=== PATIENT | male | born 1980 | race Caucasian/White ===

== ENCOUNTER 2017-01-30 09:52 | Emergency (ER) | payer OTHER ==
[~2017-01-30] VITALS: Ht 175.3 cm; Wt 86.3 kg
[~2017-01-30 09:52] MED LIST: ATI1 PO; BUS5 PO; FOL1 PO; NIC21 TD; PRILOSEC20 MG PO; THI100 PO
[2017-01-30 11:23] LABS: BASOPHIL % 0.4 % (0-2); PLATELET COUNT 242 x10^3mcL (130-400); RED CELL DISTRIBUTION WIDTH 12.5 % (11.5-14.5)
[2017-01-30 11:38] LABS: CALCIUM 8.3 mg/dL (8.5-10.1); CARBON DIOXIDE 25.8 mmol/L (21-32); CHLORIDE SERUM 102 mmol/L (98-107); CREATININE SERUM 0.8 mg/dL (0.7-1.3); GFR1 > 60 mL/min; GLUCOSE SERUM 90 mg/dL (74-106); POTASSIUM SERUM 3.8 mmol/L (3.5-5.1); SODIUM SERUM 143 mmol/L (136-145)
[2017-01-30 11:43] LABS: AMPHETAMINE QUAL UR NONE DETECTED (NEG <=1000)
[2017-01-30 11:45] LABS: ALBUMIN 4.1 g/dL (3.4-5.0); ALKALINE PHOSPHATASE 66 U/L (46-116); ALT/SGPT 75 U/L (16-63); AST/SGOT 83 U/L (15-37); BILIRUBIN TOTAL 0.65 mg/dL (0.20-1.00); TOTAL PROTEIN, SERUM 7.6 g/dL (6.4-8.2)
[2017-01-30 13:00] VITALS: BP 120/69
== END 2017-01-30 13:01 | disposition home or self-care (01) ==
LOC: ED 09:52
PROVIDERS: Emergency Medicine
DX: F10.239 Alcohol dependence with withdrawal, unspecified (principal)
CPT/HCPCS: 80307; G0480; J2060; J7030

== ENCOUNTER 2017-02-25 08:45 | Emergency (ER) | payer OTHER ==
[~2017-02-25] VITALS: Ht 175.3 cm; Wt 89.9 kg
[2017-02-25 10:52] LABS: CALCIUM 8.7 mg/dL (8.5-10.1); CARBON DIOXIDE 28.2 mmol/L (21-32); CHLORIDE SERUM 104 mmol/L (98-107); CREATININE SERUM 0.8 mg/dL (0.7-1.3); GFR1 > 60 mL/min; GLUCOSE SERUM 74 mg/dL (74-106); POTASSIUM SERUM 4.6 mmol/L (3.5-5.1); SODIUM SERUM 140 mmol/L (136-145)
[2017-02-25 11:06] LABS: BASOPHIL % 0.2 % (0-2); PLATELET COUNT 265 x10^3mcL (130-400); RED CELL DISTRIBUTION WIDTH 13.3 % (11.5-14.5)
[2017-02-25 12:33] VITALS: BP 136/87
== END 2017-02-25 12:39 | disposition home or self-care (01) ==
LOC: ED 08:45
PROVIDERS: Emergency Medicine
DX: F10.239 Alcohol dependence with withdrawal, unspecified (principal); F10.229 Alcohol dependence with intoxication, unspecified; R00.2 Palpitations; R11.0 Nausea; K21.9 Gastro-esophageal reflux disease without esophagitis
CPT/HCPCS: J2060; J2405; J7030

== ENCOUNTER 2017-04-30 08:07 | Emergency (ER) | payer OTHER ==
[~2017-04-30] VITALS: Ht 177.8 cm; Wt 86.2 kg
[2017-04-30 09:30] VITALS: BP 125/81
== END 2017-04-30 09:30 | disposition home or self-care (01) ==
LOC: ED 08:07
DX: F10.239 Alcohol dependence with withdrawal, unspecified (principal); F17.200 Nicotine dependence, unspecified, uncomplicated; F12.90 Cannabis use, unspecified, uncomplicated; Z71.6 Tobacco abuse counseling
CPT/HCPCS: 99406

== ENCOUNTER 2017-05-30 10:33 | Emergency (ER) | payer OTHER ==
[~2017-05-30] VITALS: Ht 177.8 cm; Wt 83.5 kg
[2017-05-30 13:09] LABS: PLATELET COUNT 114 x10^3mcL (130-400); RED CELL DISTRIBUTION WIDTH 14.3 % (11.5-14.5)
[2017-05-30 13:54] LABS: CARBON DIOXIDE 29.1 mmol/L (21-32); CHLORIDE SERUM 93 mmol/L (98-107); CREATININE SERUM 0.8 mg/dL (0.7-1.3); GFR1 > 60 mL/min; GLUCOSE SERUM 85 mg/dL (74-106); POTASSIUM SERUM 3.8 mmol/L (3.5-5.1); SODIUM SERUM 136 mmol/L (136-145)
[2017-05-30 15:38] VITALS: BP 121/82
== END 2017-05-30 15:38 | disposition home or self-care (01) ==
LOC: ED 10:33
PROVIDERS: Emergency Medicine
DX: F10.239 Alcohol dependence with withdrawal, unspecified (principal); F10.229 Alcohol dependence with intoxication, unspecified; K21.9 Gastro-esophageal reflux disease without esophagitis
CPT/HCPCS: G0480; J2060; J3490

== ENCOUNTER 2017-07-08 13:52 | Emergency (ER) | payer OTHER ==
[2017-07-08 14:16] VITALS: BP 127/70
== END 2017-07-08 14:16 | disposition left against medical advice (07) ==
LOC: ED 13:52
DX: F10.129 Alcohol abuse with intoxication, unspecified (principal); K21.9 Gastro-esophageal reflux disease without esophagitis
CPT/HCPCS: 36415; G0480

== ENCOUNTER 2017-10-28 13:35 | Emergency (ER) | payer OTHER ==
[~2017-10-28] VITALS: Ht 177.8 cm; Wt 93.0 kg
[2017-10-28 13:42] VITALS: Ht 177.8 cm; Wt 93.0 kg
[2017-10-28 14:28] LABS: BASOPHIL % 0.6 % (0-2); PLATELET COUNT 279 x10^3mcL (130-400); RED CELL DISTRIBUTION WIDTH 12.9 % (11.5-14.5)
[2017-10-28 14:29] VITALS: BP 118/70
[2017-10-28 14:37] LABS: CALCIUM 7.9 mg/dL (8.5-10.1); CARBON DIOXIDE 21.2 mmol/L (21-32); CHLORIDE SERUM 101 mmol/L (98-107); GFR1 > 60 mL/min; GLUCOSE SERUM 246 mg/dL (74-106); POTASSIUM SERUM 3.4 mmol/L (3.5-5.1); SODIUM SERUM 138 mmol/L (136-145)
[2017-10-28 14:41] LABS: ALBUMIN 3.7 g/dL (3.4-5.0); ALKALINE PHOSPHATASE 68 U/L (46-116); ALT/SGPT 51 U/L (16-63); AST/SGOT 38 U/L (15-37); BILIRUBIN TOTAL 0.4 mg/dL (0.20-1.00)
[2017-10-28] MEDS ORDERED: PRILOSEC OTC20 M1 PO (14:50)
[2017-10-28 16:14] LABS: PHOSPHOROUS 1.5 mg/dL (2.5-4.9)
[2017-10-28 16:17] LABS: CHOLESTEROL/HDL RATIO 3.3
[2017-10-28 16:28] LABS: FREE T4 0.98 ng/dL (0.76-1.46); FREE THYROXINE INDEX 2.2 ug/dL (1.4-4.5); T4(THYROXINE) 6.2 ug/dL (4.7-13.3)
[2017-10-28 16:36] LABS: T3 TOTAL 0.6 ng/mL
== END 2017-10-28 15:43 | disposition left against medical advice (07) ==
LOC: ED 13:35 → DU 14:40 → ED 15:43
PROVIDERS: Emergency Medicine; Family Medicine
DX: F10.231 Alcohol dependence with withdrawal delirium (principal); K21.9 Gastro-esophageal reflux disease without esophagitis
CPT/HCPCS: 83880; 84439; G0480; J2060; J7030

== ENCOUNTER 2017-10-30 19:52 | Emergency (ER) | payer OTHER ==
[~2017-10-30] VITALS: Ht 177.8 cm; Wt 94.8 kg
[~2017-10-30 19:52] MED LIST changes: +PRILOSEC OTC20 M1 PO
[2017-10-30 22:07] VITALS: BP 140/86; Ht 177.8 cm; Wt 94.8 kg
== END 2017-10-30 23:45 | disposition left against medical advice (07) ==
LOC: ED 19:52
DX: Z53.21 Procedure and treatment not carried out due to patient leaving prior to being seen by health care provider (principal)

== ENCOUNTER 2018-03-16 12:01 | Inpatient (IN) | payer OTHER ==
[~2018-03-16] VITALS: Ht 177.8 cm; Wt 99.5 kg
[2018-03-16 12:55] LABS: BASOPHIL % 0.5 % (0-2); PLATELET COUNT 265 x10^3mcL (130-400); RED CELL DISTRIBUTION WIDTH 12.7 % (11.5-14.5)
[2018-03-16 13:08] LABS: CALCIUM 8.6 mg/dL (8.5-10.1); CARBON DIOXIDE 17.1 mmol/L (21-32); CHLORIDE SERUM 98 mmol/L (98-107); CREATININE SERUM 0.8 mg/dL (0.7-1.3); GFR1 > 60 mL/min; GLUCOSE SERUM 64 mg/dL (74-106); POTASSIUM SERUM 4.6 mmol/L (3.5-5.1); SODIUM SERUM 136 mmol/L (136-145)
[2018-03-16 13:13] LABS: ALBUMIN 4.4 g/dL (3.4-5.0); ALKALINE PHOSPHATASE 77 U/L (46-116); ALT/SGPT 95 U/L (16-63); AST/SGOT 95 U/L (15-37); BILIRUBIN TOTAL 0.69 mg/dL (0.20-1.00); LIPASE 94 IU/L (73-393); TOTAL PROTEIN, SERUM 7.8 g/dL (6.4-8.2)
[2018-03-16 14:38] VITALS: BP 114/65
[2018-03-16 14:48] VITALS: Ht 177.8 cm; Wt 99.5 kg
[2018-03-16 14:49] VITALS: BP 131/66
[2018-03-16 15:35] LABS: T3 TOTAL 0.64 ng/mL
[2018-03-16 15:40] LABS: PHOSPHOROUS 3.2 mg/dL (2.5-4.9)
[2018-03-16 15:56] VITALS: BP 11/60; BP 117/76
[2018-03-16 16:02] LABS: FREE T4 1.09 ng/dL (0.76-1.46); FREE THYROXINE INDEX 2.5 ug/dL (1.4-4.5); T4(THYROXINE) 7.2 ug/dL (4.7-13.3)
[2018-03-16 16:08] LABS: UA SPECIFIC GRAVITY >=1.030 (1.005-1.035); microscopic required? YES; urine erythrocyte TRACE (NEGATIVE)
[2018-03-16 16:24] LABS: AMPHETAMINE QUAL UR NONE DETECTED (NEG <=1000)
[2018-03-16 20:20] VITALS: BP 135/77
[2018-03-17 05:54] VITALS: BP 130/74
[2018-03-17 06:43] LABS: BASOPHIL % 0.3 % (0-2); PLATELET COUNT 194 x10^3mcL (130-400); RED CELL DISTRIBUTION WIDTH 13.1 % (11.5-14.5)
[2018-03-17 06:51] LABS: CALCIUM 7.9 mg/dL (8.5-10.1); CARBON DIOXIDE 24.3 mmol/L (21-32); CHLORIDE SERUM 103 mmol/L (98-107); CREATININE SERUM 0.9 mg/dL (0.7-1.3); GFR1 > 60 mL/min; GLUCOSE SERUM 64 mg/dL (74-106); POTASSIUM SERUM 4.1 mmol/L (3.5-5.1); SODIUM SERUM 139 mmol/L (136-145)
[2018-03-17 08:50] VITALS: BP 125/80
[2018-03-17 12:49] VITALS: BP 144/72
[2018-03-17] MEDS ORDERED: THI100 PO (13:55)
[2018-03-17] MEDS ORDERED: FOL1 PO (13:55)
[2018-03-17] MEDS ORDERED: THERAGRAN-M1 TA4 PO (13:56)
[2018-03-17] MEDS ORDERED: LIB25 PO (13:57)
[2018-03-17] MEDS ORDERED: CELEXA20 MG PO (14:03)
[2018-03-17 14:18] VITALS: BP 144/72
== END 2018-03-17 15:21 | disposition home or self-care (01) | DRG 756 ==
LOC: ED 12:01 → DU 13:22 → EDBEDREQ 13:24 → DU 14:28
PROVIDERS: Emergency Medicine; Family Medicine
DX: F41.9 Anxiety disorder, unspecified (principal); F10.239 Alcohol dependence with withdrawal, unspecified; F17.210 Nicotine dependence, cigarettes, uncomplicated; Y90.9 Presence of alcohol in blood, level not specified; K21.9 Gastro-esophageal reflux disease without esophagitis; R20.2 Paresthesia of skin; R00.2 Palpitations; Z53.29 Procedure and treatment not carried out because of patient's decision for other reasons; Z79.899 Other long term (current) drug therapy
CPT/HCPCS: 83880; 84439; G0480; J2060; J2405; J2550; J3411; J3490; J7030; Q0092

== ENCOUNTER 2018-06-03 08:36 | Emergency (ER) | payer SELFPAY ==
[~2018-06-03] VITALS: Ht 175.3 cm; Wt 93.1 kg
[~2018-06-03 08:36] MED LIST changes: +CELEXA20 MG PO; +LIB25 PO; +THERAGRAN-M1 TA4 PO
[2018-06-03 08:40] VITALS: Ht 175.3 cm; Wt 93.1 kg
[2018-06-03 09:10] LABS: BASOPHIL % 1.6 % (0-2); PLATELET COUNT 342 x10^3mcL (130-400); RED CELL DISTRIBUTION WIDTH 14.5 % (11.5-14.5)
[2018-06-03 09:49] LABS: CALCIUM 8.4 mg/dL (8.5-10.1); CARBON DIOXIDE 23.6 mmol/L (21-32); CHLORIDE SERUM 98 mmol/L (98-107); CREATININE SERUM 0.9 mg/dL (0.7-1.3); GFR1 > 60 mL/min; GLUCOSE SERUM 81 mg/dL (74-106); POTASSIUM SERUM 3.6 mmol/L (3.5-5.1); SODIUM SERUM 141 mmol/L (136-145)
[2018-06-03 09:56] LABS: ALBUMIN 4.2 g/dL (3.4-5.0); ALKALINE PHOSPHATASE 69 U/L (46-116); ALT/SGPT 192 U/L (16-63); AST/SGOT 158 U/L (15-37); BILIRUBIN TOTAL 0.79 mg/dL (0.20-1.00); MAGNESIUM 1.8 mg/dL (1.8-2.4); TOTAL PROTEIN, SERUM 7.9 g/dL (6.4-8.2)
[2018-06-03 11:47] LABS: AMPHETAMINE QUAL UR NONE DETECTED (See below)
[2018-06-03 12:59] VITALS: BP 118/76
== END 2018-06-03 13:40 | disposition home or self-care (01) ==
LOC: ED 08:36
PROVIDERS: Emergency Medicine
DX: F10.129 Alcohol abuse with intoxication, unspecified (principal); K21.0 Gastro-esophageal reflux disease with esophagitis
CPT/HCPCS: G0480; J2060; J3411; J3475; J3490; J7030; Q0092

== ENCOUNTER 2018-06-04 15:34 | Emergency (ER) | payer SELFPAY ==
[~2018-06-04] VITALS: Ht 175.3 cm; Wt 93.0 kg
[2018-06-04 15:49] VITALS: Ht 175.3 cm; Wt 93.0 kg
[2018-06-04 16:59] LABS: CALCIUM 8.2 mg/dL (8.5-10.1); MAGNESIUM 1.9 mg/dL (1.8-2.4); T4(THYROXINE) 8.2 ug/dL (4.7-13.3)
[2018-06-04 19:20] VITALS: BP 138/98
[2018-06-04 20:37] LABS: PHOSPHOROUS 2.9 mg/dL (2.5-4.9)
[2018-06-04 20:42] LABS: CHOLESTEROL/HDL RATIO 2.7
== END 2018-06-04 19:20 | disposition left against medical advice (07) ==
LOC: ED 15:34 → DU 18:16 → ED 18:16
PROVIDERS: Emergency Medicine; Family Medicine
DX: F10.229 Alcohol dependence with intoxication, unspecified (principal); R55 Syncope and collapse; M62.82 Rhabdomyolysis; F17.210 Nicotine dependence, cigarettes, uncomplicated
CPT/HCPCS: 83880; 90715; G0480; J3411; J3475; J3490; J7030

== ENCOUNTER 2018-08-29 19:12 | Inpatient (IN) | payer MEDICAID ==
[~2018-08-29] VITALS: Ht 177.8 cm; Wt 94.3 kg
[2018-08-29 19:23] VITALS: Ht 177.8 cm; Wt 94.3 kg
[2018-08-29 20:53] LABS: BASOPHIL % 0.3 % (0-2); PLATELET COUNT 244 x10^3mcL (130-400); RED CELL DISTRIBUTION WIDTH 13.7 % (11.5-14.5)
[2018-08-29 20:58] LABS: CALCIUM 8.4 mg/dL (8.5-10.1); CARBON DIOXIDE 23.3 mmol/L (21-32); CHLORIDE SERUM 95 mmol/L (98-107); GFR1 > 60 mL/min; GLUCOSE SERUM 133 mg/dL (74-106); POTASSIUM SERUM 3.9 mmol/L (3.5-5.1); SODIUM SERUM 136 mmol/L (136-145)
[2018-08-29 21:04] LABS: ALBUMIN 4.4 g/dL (3.4-5.0); ALKALINE PHOSPHATASE 81 U/L (46-116); ALT/SGPT 91 U/L (16-63); AST/SGOT 65 U/L (15-37); BILIRUBIN TOTAL 0.8 mg/dL (0.20-1.00); TOTAL PROTEIN, SERUM 8.1 g/dL (6.4-8.2)
[2018-08-30 00:48] LABS: T3 TOTAL 0.75 ng/mL
[2018-08-30 00:54] LABS: PHOSPHOROUS 2.3 mg/dL (2.5-4.9)
[2018-08-30 01:06] LABS: FREE T4 0.94 ng/dL (0.76-1.46); FREE THYROXINE INDEX 2.5 ug/dL (1.4-4.5); T4(THYROXINE) 7.5 ug/dL (4.7-13.3)
[2018-08-30 01:35] VITALS: BP 131/67
[2018-08-30 04:45] VITALS: BP 126/68
[2018-08-30 06:08] VITALS: BP 106/71
[2018-08-30 08:08] VITALS: BP 122/78
[2018-08-30 08:48] LABS: UA SPECIFIC GRAVITY >=1.030 (1.005-1.035); microscopic required? YES; urine erythrocyte NEGATIVE (NEGATIVE)
[2018-08-30 09:03] LABS: AMPHETAMINE QUAL UR NONE DETECTED (See below)
[2018-08-30 09:40] LABS: BASOPHIL % 1.8 % (0-2); PLATELET COUNT 194 x10^3mcL (130-400); RED CELL DISTRIBUTION WIDTH 12.8 % (11.5-14.5)
[2018-08-30 10:07] LABS: CALCIUM 7.5 mg/dL (8.5-10.1); CHLORIDE SERUM 101 mmol/L (98-107); CREATININE SERUM 0.8 mg/dL (0.7-1.3); GFR1 > 60 mL/min; GLUCOSE SERUM 88 mg/dL (74-106); MAGNESIUM 2.4 mg/dL (1.8-2.4); PHOSPHOROUS 1.1 mg/dL (2.5-4.9); POTASSIUM SERUM 3.8 mmol/L (3.5-5.1); SODIUM SERUM 137 mmol/L (136-145)
[2018-08-30 11:45] VITALS: BP 121/78
[2018-08-30] MEDS ORDERED: LIB25 PO ×3 (11:49→11:50)
[2018-08-30 13:00] VITALS: BP 121/78
== END 2018-08-30 12:42 | disposition home or self-care (01) | DRG 52 ==
LOC: ED 19:12 → DU 08-30 00:26
PROVIDERS: Emergency Medicine; Family Medicine
DX: G92 Toxic encephalopathy (principal); E83.39 Other disorders of phosphorus metabolism; E87.2 Acidosis; F10.129 Alcohol abuse with intoxication, unspecified; E83.51 Hypocalcemia; K21.9 Gastro-esophageal reflux disease without esophagitis; Y90.6 Blood alcohol level of 120-199 mg/100 ml; R74.0 Nonspecific elevation of levels of transaminase and lactic acid dehydrogenase [LDH]; E78.5 Hyperlipidemia, unspecified; Z68.29 Body mass index [BMI] 29.0-29.9, adult; F17.210 Nicotine dependence, cigarettes, uncomplicated
CPT/HCPCS: 83880; 84439; G0480; J2060; J2405; J3411; J3475; J3490; J7030; Q0092

== ENCOUNTER 2018-09-26 18:20 | Inpatient (IN) | payer MEDICAID ==
[~2018-09-26] VITALS: Ht 175.3 cm; Wt 94.0 kg
[2018-09-26 20:16] LABS: PLATELET COUNT 231 x10^3mcL (130-400); RED CELL DISTRIBUTION WIDTH 13.8 % (11.5-14.5)
[2018-09-26 20:17] LABS: CALCIUM 8.8 mg/dL (8.5-10.1); CARBON DIOXIDE 24.6 mmol/L (21-32); CHLORIDE SERUM 98 mmol/L (98-107); CREATININE SERUM 0.9 mg/dL (0.7-1.3); GFR1 > 60 mL/min; GLUCOSE SERUM 87 mg/dL (74-106); SODIUM SERUM 141 mmol/L (136-145)
[2018-09-26 20:22] LABS: ALBUMIN 4.6 g/dL (3.4-5.0); ALKALINE PHOSPHATASE 80 U/L (46-116); ALT/SGPT 141 U/L (16-63); AST/SGOT 144 U/L (15-37); BILIRUBIN TOTAL 0.58 mg/dL (0.20-1.00)
[2018-09-26 20:28] LABS: TOTAL PROTEIN, SERUM 8.6 g/dL (6.4-8.2)
[2018-09-26 21:15] LABS: AMPHETAMINE QUAL UR NONE DETECTED (See below)
[2018-09-26 22:56] LABS: MAGNESIUM 1.8 mg/dL (1.8-2.4); PHOSPHOROUS 3.1 mg/dL (2.5-4.9)
[2018-09-26 22:57] LABS: CHOLESTEROL/HDL RATIO 4.3
[2018-09-26 23:04] LABS: T3 TOTAL 0.96 ng/mL
[2018-09-26 23:21] LABS: FREE T4 1.2 ng/dL (0.76-1.46); FREE THYROXINE INDEX 3.1 ug/dL (1.4-4.5); T4(THYROXINE) 9.3 ug/dL (4.7-13.3)
[2018-09-26 23:32] VITALS: BP 123/76
[2018-09-27 05:15] VITALS: BP 119/75
[2018-09-27 06:41] LABS: BASOPHIL % 0.7 % (0-2); PLATELET COUNT 190 x10^3mcL (130-400); RED CELL DISTRIBUTION WIDTH 13.7 % (11.5-14.5)
[2018-09-27 07:11] LABS: CALCIUM 7.6 mg/dL (8.5-10.1); CARBON DIOXIDE 26.2 mmol/L (21-32); CHLORIDE SERUM 101 mmol/L (98-107); CREATININE SERUM 0.8 mg/dL (0.7-1.3); GFR1 > 60 mL/min; POTASSIUM SERUM 3.7 mmol/L (3.5-5.1); SODIUM SERUM 143 mmol/L (136-145)
[2018-09-27 07:13] LABS: GLUCOSE SERUM 53 mg/dL (74-106)
[2018-09-27 08:27] VITALS: BP 127/79
[2018-09-27 12:22] VITALS: BP 122/73
[2018-09-27 13:23] LABS: microscopic required? NO
[2018-09-27 14:13] LABS: UA SPECIFIC GRAVITY 1.025 (1.005-1.035); urine erythrocyte NEGATIVE (NEGATIVE)
[2018-09-27 16:21] VITALS: BP 134/78
== END 2018-09-27 17:30 | disposition left against medical advice (07) | DRG 52 ==
LOC: ED 18:20 → MU 22:27 → DU 22:27 → MU 23:09 → DU 23:30
PROVIDERS: Family Medicine; Specialist
DX: G92 Toxic encephalopathy (principal); E78.5 Hyperlipidemia, unspecified; F10.129 Alcohol abuse with intoxication, unspecified; Y90.8 Blood alcohol level of 240 mg/100 ml or more; R74.0 Nonspecific elevation of levels of transaminase and lactic acid dehydrogenase [LDH]; F17.210 Nicotine dependence, cigarettes, uncomplicated; Z91.19 Patient's noncompliance with other medical treatment and regimen
CPT/HCPCS: 82962; 84439; G0480; J2060; J3411; J3475; J3490; Q0092

== ENCOUNTER 2018-10-03 08:13 | Emergency (ER) | payer SELFPAY ==
[~2018-10-03] VITALS: Ht 175.3 cm; Wt 94.4 kg
[2018-10-03 08:27] VITALS: Ht 175.3 cm; Wt 94.4 kg
[2018-10-03 09:07] LABS: BASOPHIL % 0.4 % (0-2); PLATELET COUNT 149 x10^3mcL (130-400); RED CELL DISTRIBUTION WIDTH 14.3 % (11.5-14.5)
[2018-10-03 09:09] LABS: CALCIUM 8.3 mg/dL (8.5-10.1); CARBON DIOXIDE 24.9 mmol/L (21-32); CHLORIDE SERUM 100 mmol/L (98-107); CREATININE SERUM 1.1 mg/dL (0.7-1.3); GFR1 > 60 mL/min; GLUCOSE SERUM 72 mg/dL (74-106); POTASSIUM SERUM 4.1 mmol/L (3.5-5.1); SODIUM SERUM 142 mmol/L (136-145)
[2018-10-03 09:14] LABS: ALBUMIN 4.3 g/dL (3.4-5.0); ALKALINE PHOSPHATASE 90 U/L (46-116); ALT/SGPT 114 U/L (16-63); AST/SGOT 97 U/L (15-37); BILIRUBIN TOTAL 0.66 mg/dL (0.20-1.00)
[2018-10-03 10:47] VITALS: BP 120/83
== END 2018-10-03 10:47 | disposition home or self-care (01) ==
LOC: ED 08:13
PROVIDERS: Emergency Medicine
DX: R07.89 Other chest pain (principal); F10.20 Alcohol dependence, uncomplicated; K21.9 Gastro-esophageal reflux disease without esophagitis; M79.661 Pain in right lower leg
CPT/HCPCS: 36415; Q0092

== ENCOUNTER 2019-04-24 06:34 | Emergency (ER) | payer OTHER ==
[~2019-04-24] VITALS: Ht 175.3 cm; Wt 96.2 kg
[2019-04-24 06:38] VITALS: Ht 175.3 cm; Wt 96.2 kg
[2019-04-24 07:50] LABS: BASOPHIL % 0.5 % (0-2); PLATELET COUNT 261 x10^3mcL (130-400); RED CELL DISTRIBUTION WIDTH 12.4 % (11.5-14.5)
[2019-04-24 08:10] LABS: ALBUMIN 4.6 g/dL (3.4-5.0); ALKALINE PHOSPHATASE 81 U/L (46-116); ALT/SGPT 61 U/L (16-63); AST/SGOT 60 U/L (15-37); BILIRUBIN TOTAL 0.58 mg/dL (0.20-1.00); CALCIUM 9.7 mg/dL (8.5-10.1); CARBON DIOXIDE 20.5 mmol/L (21-32); CHLORIDE SERUM 100 mmol/L (98-107); CREATININE SERUM 0.9 mg/dL (0.7-1.3); GFR1 > 60 mL/min; LIPASE 73 IU/L (73-393); MAGNESIUM 2.2 mg/dL (1.8-2.4); POTASSIUM SERUM 4.3 mmol/L (3.5-5.1); SODIUM SERUM 143 mmol/L (136-145); T4(THYROXINE) 10.2 ug/dL (4.7-13.3); TOTAL PROTEIN, SERUM 8.2 g/dL (6.4-8.2)
[2019-04-24 08:33] LABS: CHOLESTEROL 324 mg/dL (<200); HDL CHOLESTEROL 62 mg/dL (40-60)
[2019-04-24 08:35] LABS: GLUCOSE SERUM 58 mg/dL (74-106)
[2019-04-24 08:44] LABS: UA SPECIFIC GRAVITY >=1.030 (1.005-1.035); microscopic required? YES; urine erythrocyte NEGATIVE (NEGATIVE)
[2019-04-24 08:57] LABS: AMPHETAMINE QUAL UR NONE DETECTED (See below)
[2019-04-24 09:40] VITALS: BP 115/80
== END 2019-04-24 09:40 | disposition home or self-care (01) ==
LOC: ED 06:34
PROVIDERS: Emergency Medicine
DX: F10.239 Alcohol dependence with withdrawal, unspecified (principal); R74.0 Nonspecific elevation of levels of transaminase and lactic acid dehydrogenase [LDH]; F12.90 Cannabis use, unspecified, uncomplicated; F17.210 Nicotine dependence, cigarettes, uncomplicated; K21.9 Gastro-esophageal reflux disease without esophagitis; Z71.6 Tobacco abuse counseling
CPT/HCPCS: 82962; 99406; G0480; J2060; J3411; J3475; J3490; J7030; Q0092

== ENCOUNTER 2019-06-03 18:29 | Inpatient (IN) | payer OTHER ==
[~2019-06-03] VITALS: Ht 175.3 cm; Wt 94.3 kg
[2019-06-03 18:35] VITALS: Ht 175.3 cm; Wt 94.3 kg
--- NOTE | 2019-06-03 18:37 | NUR ---
PT HAS NO SHAKINESS SEEN. AMBULATES STEADILY. CALM AND COOPERATIVE. AWAITING BED AVAILABILITY.
--- NOTE | 2019-06-03 20:10 | NUR ---
PT. IN LOBBY, AWAKE AND ALERT, BREATHING E/U. NOT IN ANY APPARENT DISTRESS. STATES "IM FINE". AWAITING ROOM.
[2019-06-03 20:47] LABS: BASOPHIL % 0.3 % (0-2); PLATELET COUNT 298 x10^3mcL (130-400); RED CELL DISTRIBUTION WIDTH 14.4 % (11.5-14.5)
--- NOTE | 2019-06-03 20:47 | NUR ---
PT BIB SELF C/O SHAKINESS DUE TO ALCOHOL WITHDRAW. PT REPORTS LAST DRINK WAS 8HRS AGO AND REPORTS DRINKING VODKA. PT REPORTS HE " I AM AN ALCOHOLIC AND WANT TO SOBER UP." PT REPORTS HE HAS SEIZURES WHEN HE HAS WIHTDRAWLED IN THE PAST. PT C/O GENERALIZED HEADACHE AT THIS TIME. PT DENIES ANY NAUSEA OR DIZZINESS AT THIS TIME. PT IS AAOX4, NO NUERO DEFICITS, PT SPEAKIGN IN FULL CLEAR SENTENCES, ABLE TO FOLLOW COMMANDS AND VERBALIZE NEEDS, NO DISTRESS NOTED, RESP E/U, SKIN IS PINK WARM AND DRY. PT ON FULL CM, NSR, VSS, BED IN LOWEST POSITION, SIDERAIL X2 UP FOR SAFETY, SEIZURE PRECAUTIONS IN PLACE, PT IN VIEW OF NURSE STATION, MSE COMPLETED BY DR DUARTE. WILL CONT TO MONITOR.
[2019-06-03 20:52] LABS: CALCIUM 8.4 mg/dL (8.5-10.1); CARBON DIOXIDE 22.3 mmol/L (21-32); CHLORIDE SERUM 100 mmol/L (98-107); GFR1 > 60 mL/min; GLUCOSE SERUM 64 mg/dL (74-106); SODIUM SERUM 141 mmol/L (136-145)
[2019-06-03 20:57] LABS: ALBUMIN 4.1 g/dL (3.4-5.0); ALKALINE PHOSPHATASE 71 U/L (46-116); ALT/SGPT 67 U/L (16-63); AST/SGOT 40 U/L (15-37); BILIRUBIN TOTAL 0.7 mg/dL (0.20-1.00); TOTAL PROTEIN, SERUM 7.7 g/dL (6.4-8.2)
--- NOTE | 2019-06-03 21:04 | NUR ---
PT MEDICATED PER MD ORDERS, SEE EMAR. PT STATED VERBAL UNDERSTANDING OF MEDICATION TEACHING. WILL CONT TO MONITOR. SEIZURE PRECAUTIONS IN PLACE. PT IN VIEW OF THE NURSE STATION.
[2019-06-03] MEDS ORDERED: PRILOSEC OTC20 M1 (21:54)
--- NOTE | 2019-06-03 22:00 | NUR ---
PT ASKED FOR SOME FOOD, OK VERBALLY PER DR DUARTE TO GIVE A SANDWICH, GAVE PT A PEANUT BUTTER AND JELLY SANDWICH AND APPLE JUICE. WILL CONT TO MONITOR.
[2019-06-03 22:17] LABS: T3 TOTAL 0.93 ng/mL
--- NOTE | 2019-06-03 22:29 | NUR ---
GAVE REPORT TO EMILIA BOYKIN ON TELE WHO WILL RESUME FURTHER CARE OF THIS PATIENT.
[2019-06-03 23:05] VITALS: BP 122/91
--- NOTE | 2019-06-03 23:17 | NUR ---
RECEIVED PT FROM ER, PT ADMIT FOR ETOH ABUSE, PT IS A/O X4, VERBAL RESPONSIVE, ABLE TO TELL WHAT HE NEEDS. LUNG SOUND CLEAR BILATERAL, NO COUGH, NO SOB, PT IS ON TELE 13, NSR, DENY ANY CHEST PAIN OR DISCOMFORT, BOWEL SOUND PRESENT ALL 4 QUADRANTS, NO DISTENTION, NO TENDER. PEDAL PULSE PRESENT BOTH FEET, NO EDEMA, PT STATE LAST DRINK WAS 10 HOURS AGO. HE HAS BEEN DRINK 2 BOTTLE VOKA EVERY DAY FOR PAST 1 YEAR. THERE ARE MILD TREMOR AT BOTH HANDS AT THIS MOMENT, IV AT RIGHT AC, NO LEAKING, NO INFILTRATION. ALL ADLS ASSIST, ALL NEED MET, CALL LIGHT IN REACH, WILL CONTINUE TO MONITOR.
--- NOTE | 2019-06-04 00:18 | NUR ---
PT IS RESTING IN BED WITH EYES CLOSED AT THIS TIME. NO ACUTE DISTRESS NOTED. PT HAS BEEN CALM AND COOPERATIVE WITH CARE AT THIS TIME. NO S/S OF PAIN NOTED. IV INFUSING NS AT 100 ML/HR. NO SIGNS OF INFILTRATION. SAFETY AND COMFORT MEASURES MAINTAINED, BED IN LOWEST POSITION, CALL LIGHT WITHIN REACH.
--- NOTE | 2019-06-04 02:06 | NUR ---
PT IS RESTING IN BED WITH EYES CLOSED AT THIS TIME. NO ACUTE DISTRESS NOTED. PT HAS BEEN CALM AND COOPERATIVE WITH CARE, ALERT AND ORIENTED X4, NO S/S OF PAIN NOTED, SAFETY AND COMFORT MEASURES MAINTAINED, BED IN LOWEST POSITION, CALL LIGHT WITHIN REACH.
[2019-06-04 02:45] LABS: MAGNESIUM 2.1 mg/dL (1.8-2.4); PHOSPHOROUS 4.3 mg/dL (2.5-4.9)
[2019-06-04 02:47] LABS: CHOLESTEROL/HDL RATIO 3.4
[2019-06-04 02:48] LABS: FREE T4 1.06 ng/dL (0.76-1.46); FREE THYROXINE INDEX 2.2 ug/dL (1.4-4.5); T4(THYROXINE) 6.8 ug/dL (4.7-13.3)
[2019-06-04 04:57] VITALS: BP 118/71
--- NOTE | 2019-06-04 05:21 | NUR ---
PT HAS RESTED IN LONG INTERVALS THROUGHOUT THE SHIFT. PT HAS BEEN CALM AND COOPERATIVE WITH CARE, PT HAS NO COMPLAINT OF PAIN AT THIS TIME. IV INFUSING AND INTACT, MILD BUE TREMORS NOTED. NO ACUTE DISTRESS NOTED. SEIZURE PRECAUTIONS IN PLACE, SAFETY AND COMFORT MEASURES MAINTAINED, BED IN LOWEST POSITION, CALL LIGHT WITHIN REACH, WILL ENDORSE CONTINUITY OF CARE TO THE ONCOMING RN.
[2019-06-04 06:02] LABS: BASOPHIL % 1.2 % (0-2); PLATELET COUNT 258 x10^3mcL (130-400)
[2019-06-04 06:33] LABS: CALCIUM 8.6 mg/dL (8.5-10.1); CARBON DIOXIDE 22.8 mmol/L (21-32); CHLORIDE SERUM 104 mmol/L (98-107); CREATININE SERUM 0.9 mg/dL (0.7-1.3); GFR1 > 60 mL/min; MAGNESIUM 1.5 mg/dL (1.8-2.4); POTASSIUM SERUM 4.1 mmol/L (3.5-5.1); SODIUM SERUM 139 mmol/L (136-145)
[2019-06-04 06:52] LABS: RED CELL DISTRIBUTION WIDTH 14.8 % (11.5-14.5)
[2019-06-04 07:02] LABS: GLUCOSE SERUM 58 mg/dL (74-106)
--- NOTE | 2019-06-04 07:10 | NUR ---
PAGED DR. BERNAL REGARDING GLUCOSE 58. WILL CONTINUE TO MONITIOR.
--- NOTE | 2019-06-04 07:10 | NUR ---
RECEIVED PT FROM SHIFT NURSE A/OX4. NO ACUTE DISTRESS NOTED. IV INTACT AND PATENT. BED IN LOW POSITION. CALL LIGHT WITHIN REACH. WILL CONTINUE TO MONITOR.
--- NOTE | 2019-06-04 08:30 | NUR ---
PT AMBULATING IN HALLWAY WITH PHYSICAL THERAPIST.
[2019-06-04 09:25] VITALS: BP 129/83
--- NOTE | 2019-06-04 10:20 | NUR ---
PT C/O OF ANXIETY. GAVE ATIVAN ORDERED. WILL CONTINUE TO MONITOR.
--- NOTE | 2019-06-04 11:15 | NUR ---
PT SITTING UP IN BED WATCHING TV. NO ACUTE DISTRESS NOTED. CALL LIGHT WITHIN REACH. WILL CONTINUE TO MONITOR.
[2019-06-04 11:22] LABS: microscopic required? NO
[2019-06-04 11:44] LABS: UA SPECIFIC GRAVITY >=1.030 (1.005-1.035); urine erythrocyte NEGATIVE (NEGATIVE)
[2019-06-04 11:54] LABS: AMPHETAMINE QUAL UR NONE DETECTED (See below)
[2019-06-04 12:26] VITALS: BP 135/84
--- NOTE | 2019-06-04 13:01 | NUR ---
PAGE GATE TO IF SHE WANTS TO REPEAT ALCOHOL LEVEL AND NO NEED IT WILL METABOLIZED.
--- NOTE | 2019-06-04 13:35 | NUR ---
PT LYING IN BED WATCHING TV. NO ACUTE DISTRESS NOTED. CALL LIGHT WITHIN REACH. WILL CONTINUE TO MONITOR.
--- NOTE | 2019-06-04 15:34 | NUR ---
PT SIGNED AMA TO HOME. DR. BERNAL AWARE. ACCOMPANIED BY BOX BENDER TO LOBBY.
== END 2019-06-04 15:33 | disposition left against medical advice (07) | DRG 424 ==
LOC: ED 18:29 → MU 21:20 → DU 22:40
PROVIDERS: Emergency Medicine; ADMIT Internal Medicine
DX: E16.2 Hypoglycemia, unspecified (principal); F10.239 Alcohol dependence with withdrawal, unspecified; K21.9 Gastro-esophageal reflux disease without esophagitis; Y90.9 Presence of alcohol in blood, level not specified; Z53.21 Procedure and treatment not carried out due to patient leaving prior to being seen by health care provider
CPT/HCPCS: 83880; 84439; G0378; G0480; J2060; J2405; J7030; Q0092

== ENCOUNTER 2019-08-16 08:53 | Emergency (ER) | payer OTHER ==
[~2019-08-16] VITALS: Ht 177.8 cm; Wt 88.0 kg
[~2019-08-16 08:53] MED LIST changes: +PRILOSEC OTC20 M1
[2019-08-16 08:56] VITALS: Ht 177.8 cm; Wt 88.0 kg
[2019-08-16 10:19] LABS: BASOPHIL % 0.4 % (0-2); PLATELET COUNT 236 x10^3mcL (130-400); RED CELL DISTRIBUTION WIDTH 13.7 % (11.5-14.5)
[2019-08-16 10:52] LABS: CALCIUM 8.3 mg/dL (8.5-10.1); CARBON DIOXIDE 22.3 mmol/L (21-32); CHLORIDE SERUM 101 mmol/L (98-107); CREATININE SERUM 0.9 mg/dL (0.7-1.3); GFR1 > 60 mL/min; GLUCOSE SERUM 68 mg/dL (74-106); POTASSIUM SERUM 3.9 mmol/L (3.5-5.1); SODIUM SERUM 141 mmol/L (136-145)
[2019-08-16 10:58] LABS: ALBUMIN 4.2 g/dL (3.4-5.0); ALKALINE PHOSPHATASE 78 U/L (46-116); ALT/SGPT 54 U/L (16-63); AST/SGOT 54 U/L (15-37); BILIRUBIN TOTAL 0.5 mg/dL (0.20-1.00)
[2019-08-16 11:58] VITALS: BP 141/85
== END 2019-08-16 12:11 | disposition left against medical advice (07) ==
LOC: ED 08:53
PROVIDERS: Specialist
DX: F10.129 Alcohol abuse with intoxication, unspecified (principal); K21.9 Gastro-esophageal reflux disease without esophagitis
CPT/HCPCS: G0480; J2405; J7030

== ENCOUNTER 2019-11-29 03:17 | Emergency (ER) | payer SELFPAY ==
[2019-11-29 03:31] VITALS: Ht 175.3 cm
[2019-11-29 07:01] VITALS: BP 119/72
== END 2019-11-29 07:01 | disposition home or self-care (01) ==
LOC: ED 03:17
DX: F10.239 Alcohol dependence with withdrawal, unspecified (principal); K21.9 Gastro-esophageal reflux disease without esophagitis
CPT/HCPCS: 36415; 82962; G0480